=== PATIENT | female | born 1995 | race Caucasian/White ===

== ENCOUNTER 2024-08-06 05:00 | Inpatient (IN) | payer SELFPAY, OTHER ==
[2024-08-06] VITALS (25 sets, daily range): BP systolic 81–121; BP diastolic 51–98; PULSE 70–229; RESP 13–20; TEMP 36.3–37.3; O2SAT 81–100; BMI 27.9
[2024-08-06] MEDS: Lactated Ringers 1,000 ML 999 ML IV (04:53)
--- NOTE | 2024-08-06 05:05 | PCM.HP.OB ---
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 she was unable to describe if there were accelerations, she would hear the heart rate going up to the 160s at times. she denies any vaginal bleeding, the fluid started clear and now there is thick meconium. the patient is only having pain with contractions not in between. PFSH PFSH Allergy/AdvReac Type Severity Reaction Status Date / Time No Known Drug Allergies Allergy Mild Other Verified 08/06/24 05:04 NST FHR Rate Baby A Baseline: 150 Variability:: Minimal (to moderate) Accelerations:: 15 x 15 Decelerations:: Late and Variable NST Reactive:: Non-Reactive FHR Category:: Category II Uterine Activity:: q3-5 ROS Constitutional Constitutional: Reports systems reviewed and no addt'l complaints, except as documented ENT HEENT: Reports systems reviewed and no addt'l complaints, except as documented Cardiovascular Cardiovascular: Reports systems reviewed and no addt'l complaints, except as documented Respiratory/Chest Respiratory/Chest: Reports systems reviewed and no addt'l complaints, except as documented Gastrointestinal Gastrointestinal: Reports systems reviewed and no addt'l complaints, except as documented and nausea; Denies abdominal pain Genitourinary Genitourinary: Reports systems reviewed and no addt'l complaints, except as documented, contractions Details: present and frequency (regular ) and movement Details: present Musculoskeletal Musculoskeletal: Reports systems reviewed and no addt'l complaints, except as documented Integumentary Integumentary: Reports as per HPI Neurologic Neurologic: Reports systems reviewed and no addt'l complaints, except as documented Endocrine Endocrinology: Reports systems reviewed and no addt'l complaints, except as documented Vital Signs Vital Signs Vital Signs: 08/06/24 04:55 08/06/24 04:55 08/06/24 05:03 Pulse Rate 229 H Blood Pressure 118/76 BP Systolic 118 BP Diastolic 76 Pulse Ox 81 08/06/24 05:03 Pulse Rate 88 Blood Pressure BP Systolic BP Diastolic Pulse Ox Physical Exam Const alert, oriented x3 and healthy appearing Constitutional Narrative: uncomfortable with contractions HEENT normocephalic and moist oral mucous membranes Head and Scalp: atraumatic Neck full ROM, no lymphadenopathy, supple and thyroid normal General: trachea midline Thyroid: thyroid normal Lymph Lymphatic: no lymphadenopathy noted Chest inspection of chest normal Resp normal respiratory effort Cardio regular rate GI normal to inspection, nondistended, normoactive bowel sounds, soft to palpation and non-tender Inspection: gravid external exam normal Bimanual Exam - Vag & Uterus: uterus non-tender Manual OB Exam: estimated gestational size appropriate, presentation cephalic, dilated, effaced and station Extremity normal to inspection General Extremity: Negative for edema Skin no rashes or lesions noted Neuro deep tendon reflexes 2+ bilaterally Motor Exam: strength 5/5 throughout and clonus absent Psych mental status grossly normal Labs Labs Labs: Antibody Screen Pending Hct Pending Hgb Pending Assessment & Plan (1) Category II heart rate tracing during labor and delivery: PLAN: Plan 5 cm dilated, recurrent decels, remote from delivery, proceed with immediate .
[2024-08-06 05:06] LABS: Absolute Lymphocyte Count 1.53 X10^3/uL (0.83-4.51); Absolute Neutrophil Count 10.9 X10^3/uL (2.0-7.7); Basophil# 0.04 X10^3/uL; Basophil% 0.3 % (0-1); Eosinophil# 0.01 X10^3/uL; Eosinophils% 0.1 % (0-5); Hemoglobin 11.3 g/dL (12.0-15.0); Lymphocyte # 1.53 X10^3/ul (0.83-4.51); Lymphocyte % 11.6 % (19-41); Mean Corp Hgb Conc 31.4 g/dL (32-36); Mean Corpuscular Hgb 29.4 pg (27.0-32.0); Mean Corpuscular Volume 93.5 fL (81-99); Mean Platelet Vol. 9.5 fl (6.2-12.0); Monocyte# 0.71 X10^3/uL; Monocyte% 5.4 % (0-10); NRBC Flagged by Analyzer 0 % (0-5); Neutrophil # 10.87 X10^3/uL (2.7-7.7); Neutrophil % 82.2 % (47-70); Platelet Count 260 K/mm3 (150-450); RBC Distribution Width CV 14.3 % (11.6-14.6); Red Blood Count 3.85 M/mm3 (4.2-5.4); White Blood Count 13.2 K/mm3 (4.4-11.0)
[2024-08-06] MEDS: Cefazolin 2 GM in 0.9% Normal Saline (100mL Bag) 100 ML IV (05:13)
--- NOTE | 2024-08-06 05:22 | PLAC_PTH ---
PATIENT: TOMAS GÓMEZ V LOC: [facility] U#:[id number] AGE/SX: 29/F ROOM: 007 RE08/06/[address]: Dr. Hiral Bagley MD : 1995 BED: 1 DIS: 08/07/2024 SPEC #: [id number] RECD: 08/06/24 08:13 STATUS: CORDELL REQ #: [id number] KATERYNA: 08/06/24 05:[address]: Hiral Bagley DEPT: SURGICAL PATHOLOGY RECD BY: Susanna Coleman ENTERED: 08/08/24 08:20 SP TYPE: PLACENTA OTHR DR: No Primary Care Phys Tissues: Placenta, NOS Procedures: Surgery Specimen Level V HEADER OPERATION: Primary section PRE-OP DIAGNOSIS: Delivery TISSUE SUBMITTED: Placenta MICROSCOPIC DIAGNOSIS Placenta: Placental disc - third trimester placenta (401 gm). - Focal areas of intraparenchymal hemorrhage. - Focal chronic villitis of unknown etiology. Membranes - pigment laden macrophages consistent with meconium staining. Umbilical cord - three blood vessels and no pathologic diagnosis. See comment. SJ: 08/09/2024 COMMENT Focal areas of placental disc also show immature villi mixed with mature villi. Case has been reviewed in consultation with Dr. Campbell who concurs with the above diagnosis. IDC:AM MICROSCOPIC DESCRIPTION Slides are reviewed. GROSS DESCRIPTION SPECIMEN: PLACENTA / CLINICAL INFORMATION: A. Weight: 2.655 kg B. Gestational Age: 41 weeks C. Sex: Female PLACENTAL WEIGHT (POST FIXATION): 401 gm PLACENTAL DIMENSIONS: 16.5 x 16.0 x 2.5 cm PLACENTAL SHAPE: Usual ovoid PLACENTAL WEIGHT FOR GESTATIONAL AGE: Within 10-99th percentile MEMBRANES - Present A. Insertion: Marginal B. Site of rupture from edge: 5.0 cm from edge of placental disc C. Color of membrane: Olivas-greenish D. Abnormalities: None UMBILICAL CORD - Present A. Color: Olivas-dias B. Insertion: Eccentric C. Length: 31.0 cm D. Diameter: 1.0 cm E. Number of vessels: Three F. Abnormalities: None PLACENTAL DISC - Present A. Color of surface: Olivas-dias B. surface abnormalities: None C. Maternal cotyledons: Intact with minimal tears D. Attached retro placental clot: No clot E. Cut surface: Dark red and spongy F. Lesions: Two firm olivas-white lesions ranging in size from 1.0 to 1.2cm. G. Separate clot: Absent SECTIONS SUBMITTED: 1. Umbilical cord, end 2. Umbilical cord, placental end 3. Membrane roll 4. Placental disc, and maternal surfaces, lesion 5. Placental disc, and maternal surfaces, lesion 6. Placental disc, and maternal surfaces AM.mr 08/08/2024 TC:5 CPT: 05654
[2024-08-06] MEDS: Lactated Ringers 1,000 ML 150 ML IV (05:26)
[2024-08-06 05:36] LABS: Bacteria 0 SEEN /hpf (None Seen); Mucous, Urine 0 SEEN /hpf (<or=2+); Red Blood Cells-Urine 0 SEEN /hpf (0-5); Squamous Epithelial Cells - UA 0 SEEN /hpf (5-10); White Blood Cells 0 SEEN /hpf (0-5)
--- NOTE | 2024-08-06 06:01 | OP.PCM_ITS ---
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 Maternal Data Information Final AMBERLY Source: LMP Gestational age: 39 Details Operative Information Date of Procedure: 08/06/24 Pre-Operative Diagnosis: see a/p diagnoses Post-Operative Diagnosis: same Indications Narrative: surgeon: Hiral Bagley MD Procedure Type: low transverse general internal medicine physician #1: David Leal Type of Anesthesia: Epidural Special Medications: hemoblast Drain: Neves to straight drain Estimated Blood Loss: 900 Fluids Replaced: crystalloid Procedure Start Time: 05:25 Procedure Stop Time: 06:02 Findings Description of Procedure: The patient was placed in the dorsal supine position with leftward tilt. Patient was prepped and draped in the normal sterile fashion. Pfannenstiel skin incision was made with the scalpel and carried through to the underlying layer of fascia with the scalpel. Fascia was nicked in the midline and the incision extended laterally. The peritoneum was entered digitally. The incision was stretched and a low transverse uterine incision was made with the scalpel. The 's head was impacted deep in the pelvis, but delivered atraumatically followed by the anterior and posterior shoulders without complication the rest of the infant delivered. The cord was clamped and cut and the infant was handed off to awaiting nurse. The placenta was delivered spontaneously immediately following and was noted to be intact and have a three-vessel cord. The uterus was exteriorized cleared of all clots and debris, and bilateral uterine artery laceration was noted with meconium staining of the endometrium and abnormal appearance to the uterine lining. Bilateral uterine arteries were stitched for hemostasis, the uterus repaired, and the incision was closed in a mostly double layer closure using #1 Monocryl. The ovaries and fallopian tubes were noted to be within normal limits. The uterus was returned to the maternal abdomen and gutters were cleared of all clots and debris. hemoblast placed over the incision, hemostasis ocnfirmed. The peritoneum was closed with 3-0 Monocryl in a running fashion. Gloves were changed prior to skin closure. Fascia was closed with 0 PDS in a running fashion. Subcutaneous tissue was copiously irrigated and the skin was closed with 3-0 Monocryl in a subcuticular fashion. Mepilex dressing was applied without complication. Patient was taken to recovery in stable condition. It was discussed with the patient that based on the clinical information obtained during this encounter, combined with her history, at this time I would recommend vaginal or for future deliveries if further pregnancies are desired. hospital based recommended. Amniotic Membrane Rupture Type: Spontaneous Amniotic Fluid Description: Thick meconium Placental Delivery Description: Spontaneous Placenta Disposition: [facility] Cord Vessel Description: 3 Vessels Delayed Cord Clamping: No Complications Risks of Surgery Discussed w/Patient: Bleeding, Infection, Need for Future C- Sections and Injury to surrounding structure(s) including bowel and bladder Complications: none Admit VTE Documentation VTE Present on Admission: No VTE Mechan Device Prophylaxis: SCD's Procedures Urinary/Genital [id number]: 28419 delivery+PP Care([facility])
--- NOTE | 2024-08-06 06:09 | DCINST_ITS ---
Discharge Instructions Diet Discharge Diet: No restrictions Activity Discharge Activity: May Not Drive (for 2 weeks or while taking narcotic pain medications.), May Shower and May Take a Tub Bath (in 7 days) May shower in (days): 0 May resume sexual activity in: 4-6 weeks Weight Bearing Status: Full weight bearing Lifting Restrictions: 20 pounds Dressing / Incision Call your doctor if your incision/area has: Continuous Slow Oozing, Sudden Increased Bleeding, Increased Pain/ Swelling, Increased Redness and Foul Smelling Discharge Call your doctor if you observe: Fever of 101 or Higher and Using more than 1 pad per hour (for 2 hours) Suture Line Care: Avoid Pulling/Pushing and Avoid Pinching/Bending Cleanse incision/area with: Soap & Water and Keep Dressing Clean & Dry Follow Up Care Please Follow Up With: Hiral Bagley MD When: Call [phone] to make an appointment for an incision check in 1-2 weeks. Test Results: Test results from this visit will be discussed in further detail at your follow- up appointment, if applicable. Discharge Plan Admission Admit Date/Time: 08/06/24 05:00 Attending Provider: Hiral Bagley Primary Care Provider: Care Physician,Arina Primary Discharge Orders/Prescriptions Referrals / Follow Up: Care Physician,No Primary [Primary Care Provider] - Disposition Disposition (needs filled in before D/C Order can be placed): Home, Self Care
[2024-08-06 06:10] LABS: HIV - WCH Non-Reactive (Nonreactive); Syphilis Antibodies Non-reactive
[2024-08-06] MEDS: Azithromycin 500 MG in Dextrose 5%-Water (250mL Bag) 250 ML 250 MG IV (06:28)
[2024-08-06 06:29] LABS: Color, Urine Yellow (Yellow); Glucose, Dipstick Normal (Normal); Ketone-Dipstick 15 mg/dl (Negative); Leukocyte Esterase-Dipstick Negative /ul (Negative); Nitrite-Dipstick Negative (Negative); Occult Blood-Urine 50 /ul (Negative); Protein-Dipstick Negative (Negative); Urine Bilirubin Dipstick Negative (Negative); Urine Clarity Clear (Clear); Urine Urobilinogen Normal (Normal)
[2024-08-06 06:47] LABS: Hepatitis B Surface Antigen Non-Reactive (Nonreactive); Hepatitis C Antibody Non-Reactive (Nonreactive)
[2024-08-06 06:48] LABS: Amphetamine Urine VISTA NEGATIVE (<1000 ng/mL); Barbiturate Urine VISTA NEGATIVE (< 200 ng/mL); Benzodiazepine Urine VISTA NEGATIVE (< 200 ng/mL); Cocaine Urine VISTA NEGATIVE (< 300 ng/mL); Ecstacy Urine VISTA NEGATIVE (< 500 ng/mL); Methadone Urine VISTA NEGATIVE (< 300 ng/mL); PCP Urine VISTA NEGATIVE (< 25 ng/mL); THC Urine VISTA NEGATIVE (< 50 ng/mL); Vista UDS pH Range 7
[2024-08-06] MEDS: Oxytocin 15 Units/NS 250ml 15 UNITS/250 ML IV.SOLN 83 UNITS IV (06:48)
[2024-08-06] MEDS: Ketorolac 30 MG/ML Syringe IV ×3 (08:00→20:13)
--- NOTE | 2024-08-06 08:36 | NURSING ---
all late entry charting done on this pt by this RN due to pt care
[2024-08-06] MEDS: Acetaminophen 650 MG/20 ML UDC 1000 MG PO ×2 (13:12→20:13)
[2024-08-06 14:35] LABS: Rubella IgG Non-Reactive (Nonreactive); Syphilis Antibodies Non-reactive
[2024-08-06 18:53] LABS: Absolute Lymphocyte Count 1.38 X10^3/uL (0.83-4.51); Absolute Neutrophil Count 9.1 X10^3/uL (2.0-7.7); Basophil# 0.02 X10^3/uL; Basophil% 0.2 % (0-1); Eosinophil# 0.02 X10^3/uL; Eosinophils% 0.2 % (0-5); Hemoglobin 8.6 g/dL (12.0-15.0); Lymphocyte # 1.38 X10^3/ul (0.83-4.51); Lymphocyte % 12.3 % (19-41); Mean Corp Hgb Conc 33.1 g/dL (32-36); Mean Corpuscular Hgb 29.8 pg (27.0-32.0); Mean Platelet Vol. 9.2 fl (6.2-12.0); Monocyte# 0.66 X10^3/uL; Monocyte% 5.9 % (0-10); NRBC Flagged by Analyzer 0 % (0-5); Neutrophil # 9.08 X10^3/uL (2.7-7.7); Neutrophil % 81.2 % (47-70); Platelet Count 244 K/mm3 (150-450); RBC Distribution Width CV 14.6 % (11.6-14.6); RBC Distribution Width SD 47.9 fl (35.1-43.9); Red Blood Count 2.89 M/mm3 (4.2-5.4); White Blood Count 11.2 K/mm3 (4.4-11.0)
--- NOTE | 2024-08-06 18:57 | NURSING ---
CADE questioning RNs throughout day about when pt will be ready for discharge. Made aware of protocol following with duramorph of observing for at least 24 hours as well as baby concerns. Verbalizes understanding and states that they feel like both mother and baby are doing pretty good and they feel like they would like to go home this evening. Also discussed that pt has just had catheter removed and has not been up around in room other than to chair and may feel more discomfort as she becomes more active. Also made aware that they have the right to refuse any care but that might not always be in the patient's best interest per the doctor's recommendation. Dr. Oliveira, nurse, has been in several times to assess baby and discuss treatment plan with parents. After phone conversation with their heating plant superintendentInocencia FOB not informing this RN that they would like discharge tonight in 1 - [address] 1/[address] Bagley called per charge nurse and will be in to talk with parents after she talks with their heating plant superintendent. Return call to CADE from heating plant superintendentJuan Carlos, and CADE now states they will be willing to stay until morning.
--- NOTE | 2024-08-06 19:26 | NURSING ---
Pt. made aware she is non-immune to rubella. Declines MMR.
[2024-08-07] VITALS (13 sets, daily range): BP systolic 97–110; BP diastolic 56–67; PULSE 70–102; RESP 16; TEMP 36.6–37.8; O2SAT 95–100
[2024-08-07] MEDS: Acetaminophen 650 MG/20 ML UDC 1000 MG PO ×2 (01:45→15:47)
[2024-08-07] MEDS: Ketorolac 30 MG/ML Syringe IV (01:46)
[2024-08-07 06:48] LABS: Hematocrit 21.4 % (37-47); Hemoglobin 6.8 g/dL (12.0-15.0); Mean Corp Hgb Conc 31.8 g/dL (32-36); Mean Corpuscular Hgb 29.6 pg (27.0-32.0); Mean Platelet Vol. 9.9 fl (6.2-12.0); Platelet Count 108 K/mm3 (150-450); RBC Distribution Width CV 14.8 % (11.6-14.6); RBC Distribution Width SD 49.8 fl (35.1-43.9); White Blood Count 10.2 K/mm3 (4.4-11.0)
--- NOTE | 2024-08-07 07:39 | PCM.PN.OB ---
Subjective Subjective patient feeling well overall, no dizziness or lightheadness, vaginal bleeding minimal. she is asking to go home and tried to leave AMA last night, resistant to interventions but after explantions will stay and have workup for now. no CP SOB Objective Data Objective Data Vital Signs: Vital Signs Temp Pulse Resp BP Pulse Ox O2 Del Method 97.9 F 74 16 97/62 97 Room Air 08/07/24 04:11 08/07/24 06:32 08/07/24 06:32 08/07/24 04:11 08/07/24 06:32 08/07/24 06:32 Oxygen Delivery Method Room Air Weight: 143 lb Body Mass Index (BMI) 27.9 Intake & Output: Intake and Output for Last 24 Hours 08/05/24 08/06/24 08/07/24 23:59 23:59 23:59 Intake Total 2615.00 / 2615.00 Output Total 1950 / 1950 800 / 800 Balance 665.00 / 665.00 -800 / -800 Lab / Micro Data 08/07/24 06:40 Labs: Laboratory Results - last 24 hr 08/06/24 05:50: Syphilis Total Ab Non-reactive, Rubella IgG Antibody Non-Reactive 08/06/24 18:47: WBC 11.2 H, RBC 2.89 L, Hgb 8.6 L, Hct 26.0 L, MCV 90.0, MCH 29.8, MCHC 33.1 D, RDW Std Deviation 47.9 H, RDW Coeff of Helen 14.6, Plt Count 244, MPV 9.2, Immature Gran % (Auto) 0.200, Neut % (Auto) 81.2 H, Lymph % (Auto) 12.3 L, Platte % (Auto) 5.9, Eos % (Auto) 0.2, Baso % (Auto) 0.2, Absolute Neuts (auto) 9.1 H, Absolute Lymphs (auto) 1.38, Nucleated RBC % 0 08/07/24 06:40: WBC 10.2, RBC 2.30 L, Hgb 6.8 L, Hct 21.4 L, MCV 93.0, MCH 29.6, MCHC 31.8 L, RDW Std Deviation 49.8 H, RDW Coeff of Helen 14.8 H, Plt Count 108 L, MPV 9.9 Micro: Microbiology 08/06/24 05:05 Urine, Clean Catch Chlamydia/Neisseria (PCR) - Final ROS Constitutional Constitutional: Reports systems reviewed and no addt'l complaints, except as documented Cardiovascular Cardiovascular: Reports systems reviewed and no addt'l complaints, except as documented Respiratory/Chest Respiratory/Chest: Reports systems reviewed and no addt'l complaints, except as documented Gastrointestinal Gastrointestinal: Reports systems reviewed and no addt'l complaints, except as documented Physical Exam Const alert, oriented x3 and no apparent distress HEENT Head and Scalp: atraumatic Resp normal respiratory effort GI soft to palpation and non-tender GI Narrative: no rebound tenderness Inspection: incision intact, healing well and drainage (none) Bimanual Exam - Vag & Uterus: uterus non-tender Uterus Palpation: uterus fundus firm (below Umbilicus) Assessment & Plan (1) delivery delivered: COMMENT: LTCS NRFHTS suspected undiagnosed IUGR, 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 (2) Anemia associated with acute blood loss: PLAN: Plan s/p LT PPD # 1 1. post care- incision intact 2. breast feeding- support given 3. rh positive 4. rubella non immune- offer MMR patient appears clinically stable at this time but need to follow Hg closely discussed checking repeat Hg in 2 hours, will transfuse 1 unit blood after repeat Hg, another unit on hold. discussed possible need for exploratory laparotomy, blood transfusion, patient and her requesting chlorophyl at this time. I stated I don't recommend it be given instead of but I am fine if it is given in addition to medication
[2024-08-07 08:48] LABS: Absolute Lymphocyte Count 1.46 X10^3/uL (0.83-4.51); Absolute Neutrophil Count 7.7 X10^3/uL (2.0-7.7); Basophil# 0.01 X10^3/uL; Basophil% 0.1 % (0-1); Eosinophil# 0.07 X10^3/uL; Eosinophils% 0.7 % (0-5); Hematocrit 19.8 % (37-47); Hemoglobin 6.5 g/dL (12.0-15.0); Lymphocyte # 1.46 X10^3/ul (0.83-4.51); Lymphocyte % 14.7 % (19-41); Mean Corp Hgb Conc 32.8 g/dL (32-36); Mean Corpuscular Hgb 29.5 pg (27.0-32.0); Mean Platelet Vol. 8.9 fl (6.2-12.0); Monocyte# 0.64 X10^3/uL; Monocyte% 6.4 % (0-10); NRBC Flagged by Analyzer 0 % (0-5); Neutrophil # 7.73 X10^3/uL (2.7-7.7); Neutrophil % 77.6 % (47-70); Platelet Count 190 K/mm3 (150-450); RBC Distribution Width CV 14.9 % (11.6-14.6); RBC Distribution Width SD 48.1 fl (35.1-43.9)
--- NOTE | 2024-08-07 09:22 | PCM.PN.BLA ---
Progress Note repeat hg stable and platelets increased, will give 1 unti blood and repeta cbc 2 hours post transfusion
[2024-08-07 13:40] LABS: Absolute Lymphocyte Count 1.65 X10^3/uL (0.83-4.51); Absolute Neutrophil Count 8.5 X10^3/uL (2.0-7.7); Basophil# 0.03 X10^3/uL; Basophil% 0.3 % (0-1); Eosinophil# 0.05 X10^3/uL; Eosinophils% 0.5 % (0-5); Hematocrit 24.2 % (37-47); Lymphocyte # 1.65 X10^3/ul (0.83-4.51); Lymphocyte % 15.2 % (19-41); Mean Corp Hgb Conc 33.1 g/dL (32-36); Mean Corpuscular Volume 90.6 fL (81-99); Monocyte# 0.55 X10^3/uL; Monocyte% 5.1 % (0-10); NRBC Flagged by Analyzer 0 % (0-5); Neutrophil % 78.3 % (47-70); Platelet Count 208 K/mm3 (150-450); RBC Distribution Width CV 14.6 % (11.6-14.6); Red Blood Count 2.67 M/mm3 (4.2-5.4); White Blood Count 10.8 K/mm3 (4.4-11.0)
[2024-08-10 10:26] LABS: Pathology Specimen OB SEE PATHOLOGY REPORT
== END 2024-08-07 18:05 | disposition home or self-care (01) | DRG 787 ==
PROVIDERS: Admitting Provider Obstetrics & Gynecology; Visit Provider Obstetrics & Gynecology
DX: O76 Abnormality in fetal heart rate and rhythm complicating labor and delivery (principal); D62 Acute posthemorrhagic anemia; O36.5930 Maternal care for other known or suspected poor fetal growth, third trimester, not applicable or unspecified; O48.0 Post-term pregnancy; O90.81 Anemia of the puerperium; O77.0 Labor and delivery complicated by meconium in amniotic fluid; Z37.0 Single live birth; Z3A.41 41 weeks gestation of pregnancy
CPT/HCPCS: 59025; 59050; 76815; 80307; 81001; 85025; 85027; 86703; 86762; 86780; 86803; 86850; 86900; 86901; 86920; 87340; 87491; 87591; 88307; 99221; J7120; P9016; G0378

== ENCOUNTER → 2024-11-07 | Outpatient (CLI) | payer SELFPAY ==
[2024-11-07 12:27] LABS: Absolute Lymphocyte Count 1.85 X10^3/uL (0.83-4.51); Basophil# 0.03 X10^3/uL; Basophil% 0.6 % (0-1); Eosinophil# 0.06 X10^3/uL; Eosinophils% 1.2 % (0-5); Hematocrit 40.9 % (37-47); Hemoglobin 13.4 g/dL (12.0-15.0); Lymphocyte # 1.85 X10^3/ul (0.83-4.51); Lymphocyte % 35.5 % (19-41); Mean Corp Hgb Conc 32.8 g/dL (32-36); Mean Corpuscular Hgb 28.3 pg (27.0-32.0); Mean Corpuscular Volume 86.3 fL (81-99); Mean Platelet Vol. 9.8 fl (6.2-12.0); Monocyte# 0.26 X10^3/uL; NRBC Flagged by Analyzer 0 % (0-5); Neutrophil # 3.01 X10^3/uL (2.7-7.7); Neutrophil % 57.7 % (47-70); Platelet Count 290 K/mm3 (150-450); RBC Distribution Width CV 12.7 % (11.6-14.6); RBC Distribution Width SD 40.2 fl (35.1-43.9); Red Blood Count 4.74 M/mm3 (4.2-5.4); White Blood Count 5.2 K/mm3 (4.4-11.0)
== END | disposition home or self-care (01) ==
LOC: BWCLAB 09:56
PROVIDERS: Referring Provider Nurse Practitioner Women's Health; Visit Provider Nurse Practitioner Women's Health
DX: D62 Acute posthemorrhagic anemia (principal)
CPT/HCPCS: 36415; 85025